=== PATIENT | female | born 1955 | race Caucasian/White ===

== ENCOUNTER 2017-07-26 10:17 | Inpatient (IN) ==
[2017-07-26] MEDS ORDERED: LOPERAMIDE 2 MG CAPSULE PO STA (11:03)
[2017-07-26] MEDS ORDERED: ONDANSETRON 4 MG/2 ML VIAL IV STA (11:03)
[2017-07-26] MEDS ORDERED: SODIUM CHLORIDE 0.9% 2,000 ML IV STA (11:03)
[2017-07-26 12:04] LABS: Basophils # 0.1 10*3/uL (0.0-0.2); Basophils % 0.3 % (0.0-0.8); Hematocrit 37.4 VOL% (35.7-47.0); Hemoglobin 12.5 GM/DL (12.0-16.0); Immature Granulocytes % 0.7 %; Immature Granulocytes Absolute 0.11 #; Lymphocytes # 0.7 10*3/uL (1.4-4.0); Lymphocytes % 4.5 % (21.3-54.2); Mean Corpuscular HGB Conc 33.4 GM/DL (32-36); Mean Corpuscular Hemoglobin 29 PG (27-34); Monocytes # 1.3 10*3/uL (0.11-0.8); Monocytes % 8.6 % (1.7-12.7); Neutrophils # 13.1 10*3/uL (1.4-7.4); Neutrophils % 85.9 % (38.7-73.9); Platelet Count 249 T/CUMM (130-400); Red Cell Distribution Width 14.1 % (9.3-17.3); White Blood Count 15.3 T/CUMM (4-12)
[2017-07-26] MEDS ORDERED: ACETAMINOPHEN 500 MG TABLET ONE (12:14)
[2017-07-26] MEDS ORDERED: ACETAMINOPHEN 500 MG TABLET PO STA (12:15)
[2017-07-26 12:36] LABS: Albumin 3.2 G/DL (3.4-5.0); Bilirubin,Total 0.9 MG/DL (0.2-1.0); Calcium 7.7 MG/DL (8.5-10.1); Osmolality,Calculated 271.5 MOS/KG (273-304); Potassium 3.7 MMOL/L (3.5-5.1)
[2017-07-26 12:38] LABS: Hypochromasia Slight; Lymphocytes 3 % (20-55); Platelet Estimate Adequate; Segmented Neutrophils 92 % (50-85); Total Cells Counted 100
[2017-07-26] MEDS ORDERED: cefTRIAXone 1,000 MG in SODIUM CHLORIDE 0.9% 100 ML IV STA (13:02)
[2017-07-26] MEDS ORDERED: ACETAMINOPHEN 325 MG TABLET PO PRN (13:10)
[2017-07-26] MEDS ORDERED: ONDANSETRON 4 MG/2 ML VIAL IV PRN (13:10)
[2017-07-26] MEDS ORDERED: cefTRIAXone 1,000 MG in SYRINGE 1 EACH IV STA (13:11)
[2017-07-26] MEDS: SODIUM CHLORIDE 0.9% 1,000 ML IV SCH ×2 (14:20→20:55)
[2017-07-26 16:37] LABS: Apearance,Urine CLEAR (Clear); Bilirubin,Urine Negative (Negative); Blood, Urine Large mg/dL (Negative); Glucose,Urine (UA) >=500 mg/dL (Negative); Ketones,Urine 20 mg/dL (Negative); Mucus,Urine Occasional /LPF (Occasional); Nitrite,Urine Negative (Negative); Protein,Urine 30 MG/DL; RBC,Urine 6 /HPF (0-4); Squamous Epithelial Cell,Urine Occasional /HPF (0-10); Urine Color Yellow (Yellow); Urine Specific Gravity 1.032 (1.001-1.035); Urine Urobilinogen < 2.0 EU/DL (0.2-1.0); WBC,Urine 1 /HPF (0-6)
[2017-07-26] MEDS ORDERED: ERGOCALCIFEROL 50,000 UNIT CAPSULE PO SCH (18:00)
[2017-07-26] MEDS ORDERED: SKIN HEALING OINT (AQUAPHOR) 50 GM TUBE TOP PRN (19:30)
[2017-07-26] MEDS ORDERED: MAGNESIUM HYDROXIDE SUSP 30 ML UDCUP PO PRN (19:34)
[2017-07-26] MEDS ORDERED: PROMETHAZINE 25 MG/1 ML VIAL IM PRN (19:35)
[2017-07-26] MEDS ORDERED: GLUCAGON 1 MG VIAL IM PRN (19:37)
[2017-07-26] MEDS ORDERED: DEXTROSE 50% 25 GM/50 ML VIAL IV PRN (19:37)
[2017-07-26] MEDS ORDERED: FUROSEMIDE 40 MG/4 ML VIAL IV ONE (20:00)
[2017-07-26] MEDS ORDERED: POTASSIUM CHLORIDE 20 MEQ TABLET PO ONE (20:00)
[2017-07-26] MEDS: MYCOPHENOLATE MOFETIL 250 MG CAPSULE PO SCH (20:47)
[2017-07-26] MEDS: CALCIUM (CARBONATE) 500 MG TABLET PO SCH (20:48)
[2017-07-26] MEDS: DOCUSATE SODIUM 100 MG CAPSULE PO SCH (20:48)
[2017-07-26] MEDS: MULTIVITAMIN (CENTRUM) TABLET PO SCH (20:48)
[2017-07-26] MEDS: methylPREDNISolone SOD SUC 40 MG/1 ML VIAL IV SCH (20:52)
[2017-07-26] MEDS: AZITHROMYCIN INJ 250 MG in SODIUM CHLORIDE 0.9% 250 ML IV SCH (20:56)
[2017-07-26] MEDS: KETOROLAC 15 MG/1 ML VIAL IV SCH (21:02)
[2017-07-26] MEDS: ALBUTEROL/IPRATROPIUM 3 ML NEB RESP TX SCH (23:57)
[2017-07-27] MEDS: cefTRIAXone 1,000 MG in SYRINGE 1 EACH IV SCH ×2 (00:50→13:38)
[2017-07-27] MEDS: methylPREDNISolone SOD SUC 40 MG/1 ML VIAL IV SCH ×3 (05:14→20:25)
[2017-07-27] MEDS: KETOROLAC 15 MG/1 ML VIAL IV SCH ×3 (05:16→22:16)
[2017-07-27 05:27] LABS: Basophils % 0.2 % (0.0-0.8); Hematocrit 35.4 VOL% (35.7-47.0); Hemoglobin 11.3 GM/DL (12.0-16.0); Immature Granulocytes % 0.6 %; Immature Granulocytes Absolute 0.07 #; Lymphocytes # 0.8 10*3/uL (1.4-4.0); Lymphocytes % 6.5 % (21.3-54.2); Mean Corpuscular HGB Conc 31.9 GM/DL (32-36); Mean Corpuscular Hemoglobin 29 PG (27-34); Mean Corpuscular Volume 89.8 FL (87-102); Mean Platelet Volume 10.2 FL (9.6-12.0); Monocytes # 0.4 10*3/uL (0.11-0.8); Monocytes % 3.2 % (1.7-12.7); Neutrophils % 89.5 % (38.7-73.9); Platelet Count 226 T/CUMM (130-400); Red Blood Count 3.94 MC/CUMM (3.8-5.5); Red Cell Distribution Width 14.2 % (9.3-17.3); White Blood Count 12.3 T/CUMM (4-12)
[2017-07-27 06:01] LABS: Albumin 3.1 G/DL (3.4-5.0); Bilirubin,Total 0.6 MG/DL (0.2-1.0); Calcium 7.1 MG/DL (8.5-10.1); Osmolality,Calculated 285.5 MOS/KG (273-304); Potassium 4.2 MMOL/L (3.5-5.1); Total Protein 7.9 G/DL (6.4-8.3)
[2017-07-27 06:06] LABS: Folate 21.4 NG/ML (5.4-24.0)
[2017-07-27 06:06] LABS: Calcium 7.2 MG/DL (8.5-10.1); Osmolality,Calculated 285.5 MOS/KG (273-304); Potassium 4.4 MMOL/L (3.5-5.1)
[2017-07-27] MEDS: ALBUTEROL/IPRATROPIUM 3 ML NEB RESP TX SCH ×3 (08:11→23:55)
[2017-07-27] MEDS ORDERED: LYSINE 1000 MG PO SCH (09:00)
[2017-07-27] MEDS ORDERED: predniSONE 5 MG TABLET PO SCH (09:00)
[2017-07-27] MEDS ORDERED: CANAGLIFLOZIN 300 MG PO SCH (09:00)
[2017-07-27] MEDS ORDERED: [Biotin] 10,000 MCG PO SCH (09:00)
[2017-07-27] MEDS ORDERED: TURMERIC PO SCH (09:00)
[2017-07-27] MEDS ORDERED: CHLORPHENIRAMINE MALEATE 4 MG PO SCH (09:00)
[2017-07-27] MEDS ORDERED: FUROSEMIDE 20 MG/2 ML VIAL IV SCH (09:00)
[2017-07-27] MEDS ORDERED: POTASSIUM CHLORIDE 20 MEQ TABLET PO SCH (09:00)
[2017-07-27] MEDS: CALCIUM (CARBONATE) 500 MG TABLET PO SCH ×2 (09:08→20:30)
[2017-07-27] MEDS: INSULIN REGULAR 100 UNIT/ML SUBCUT SCH ×2 (09:08→17:25)
[2017-07-27] MEDS: DOCUSATE SODIUM 100 MG CAPSULE PO SCH ×2 (09:08→20:25)
[2017-07-27] MEDS: SERTRALINE 50 MG TABLET PO SCH (09:08)
[2017-07-27] MEDS: CALCITRIOL 0.25 MCG CAPSULE PO SCH (09:08)
[2017-07-27] MEDS: PANTOPRAZOLE 40 MG TABLET PO SCH (09:08)
[2017-07-27] MEDS: MULTIVITAMIN (CENTRUM) TABLET PO SCH ×2 (09:08→20:25)
[2017-07-27] MEDS: MYCOPHENOLATE MOFETIL 250 MG CAPSULE PO SCH ×2 (09:08→20:24)
[2017-07-27] MEDS: SODIUM CHLORIDE 0.9% 1,000 ML IV SCH (13:40)
[2017-07-27] MEDS: AZITHROMYCIN INJ 250 MG in SODIUM CHLORIDE 0.9% 250 ML IV SCH (20:21)
[2017-07-27] MEDS ORDERED: CYANOCOBALAMIN 1000 MCG/1 ML VIAL IM ONE (21:30)
[2017-07-28] MEDS: SODIUM CHLORIDE 0.9% 1,000 ML IV SCH ×3 (00:25→20:51)
[2017-07-28] MEDS: cefTRIAXone 1,000 MG in SYRINGE 1 EACH IV SCH ×2 (00:30→12:47)
[2017-07-28] MEDS: methylPREDNISolone SOD SUC 40 MG/1 ML VIAL IV SCH ×3 (05:23→14:13)
[2017-07-28] MEDS: KETOROLAC 15 MG/1 ML VIAL IV SCH ×3 (05:26→23:09)
[2017-07-28 05:30] LABS: Basophils % 0.1 % (0.0-0.8); Hematocrit 30.9 VOL% (35.7-47.0); Hemoglobin 10.3 GM/DL (12.0-16.0); Immature Granulocytes % 0.8 %; Lymphocytes # 1.1 10*3/uL (1.4-4.0); Lymphocytes % 8.4 % (21.3-54.2); Mean Corpuscular HGB Conc 33.3 GM/DL (32-36); Mean Corpuscular Hemoglobin 29 PG (27-34); Mean Corpuscular Volume 88.3 FL (87-102); Mean Platelet Volume 10.4 FL (9.6-12.0); Monocytes # 0.6 10*3/uL (0.11-0.8); Monocytes % 4.3 % (1.7-12.7); Neutrophils # 11.3 10*3/uL (1.4-7.4); Neutrophils % 86.4 % (38.7-73.9); Platelet Count 247 T/CUMM (130-400); Red Cell Distribution Width 14.6 % (9.3-17.3); White Blood Count 13.1 T/CUMM (4-12)
[2017-07-28 05:57] LABS: Calcium 6.9 MG/DL (8.5-10.1); Osmolality,Calculated 280.8 MOS/KG (273-304)
[2017-07-28] MEDS: ALBUTEROL/IPRATROPIUM 3 ML NEB RESP TX SCH ×2 (07:06→14:00)
[2017-07-28] MEDS: PANTOPRAZOLE 40 MG TABLET PO SCH (10:04)
[2017-07-28] MEDS: SERTRALINE 50 MG TABLET PO SCH (10:04)
[2017-07-28] MEDS: DOCUSATE SODIUM 100 MG CAPSULE PO SCH ×2 (10:05→20:54)
[2017-07-28] MEDS: MYCOPHENOLATE MOFETIL 250 MG CAPSULE PO SCH ×2 (10:05→20:50)
[2017-07-28] MEDS: CALCIUM (CARBONATE) 500 MG TABLET PO SCH ×2 (10:06→20:51)
[2017-07-28] MEDS: CALCITRIOL 0.25 MCG CAPSULE PO SCH (10:06)
[2017-07-28] MEDS: MULTIVITAMIN (CENTRUM) TABLET PO SCH ×2 (10:06→20:50)
[2017-07-28] MEDS: INSULIN REGULAR 100 UNIT/ML SUBCUT SCH ×2 (10:06→16:55)
[2017-07-28] MEDS: AZITHROMYCIN INJ 250 MG in SODIUM CHLORIDE 0.9% 250 ML IV SCH (20:51)
[2017-07-29] MEDS: ALBUTEROL/IPRATROPIUM 3 ML NEB RESP TX SCH ×2 (00:40→07:29)
[2017-07-29] MEDS: cefTRIAXone 1,000 MG in SYRINGE 1 EACH IV SCH (02:41)
[2017-07-29] MEDS: methylPREDNISolone SOD SUC 40 MG/1 ML VIAL IV SCH (02:42)
[2017-07-29 06:33] LABS: Basophils % 0.1 % (0.0-0.8); Eosinophils % 0.1 % (0.00-10.9); Hematocrit 30.3 VOL% (35.7-47.0); Hemoglobin 10.3 GM/DL (12.0-16.0); Immature Granulocytes % 0.8 %; Lymphocytes # 1.2 10*3/uL (1.4-4.0); Mean Corpuscular Hemoglobin 29 PG (27-34); Mean Corpuscular Volume 86.3 FL (87-102); Mean Platelet Volume 10.3 FL (9.6-12.0); Monocytes # 0.8 10*3/uL (0.11-0.8); Monocytes % 6.7 % (1.7-12.7); Neutrophils # 9.8 10*3/uL (1.4-7.4); Neutrophils % 82.3 % (38.7-73.9); Platelet Count 259 T/CUMM (130-400); Red Blood Count 3.51 MC/CUMM (3.8-5.5)
[2017-07-29 06:52] LABS: Calcium 6.9 MG/DL (8.5-10.1); Osmolality,Calculated 286.3 MOS/KG (273-304); Potassium 3.8 MMOL/L (3.5-5.1)
[2017-07-29] MEDS: KETOROLAC 15 MG/1 ML VIAL IV SCH (07:01)
[2017-07-29 07:41] VITALS: BP 104/58
[2017-07-29] MEDS: INSULIN REGULAR 100 UNIT/ML SUBCUT SCH (09:36)
[2017-07-29] MEDS: SODIUM CHLORIDE 0.9% 1,000 ML IV SCH (09:37)
[2017-07-29] MEDS: MYCOPHENOLATE MOFETIL 250 MG CAPSULE PO SCH (09:38)
[2017-07-29] MEDS: MULTIVITAMIN (CENTRUM) TABLET PO SCH (09:39)
[2017-07-29] MEDS: CALCIUM (CARBONATE) 500 MG TABLET PO SCH (09:39)
[2017-07-29] MEDS: DOCUSATE SODIUM 100 MG CAPSULE PO SCH (09:39)
[2017-07-29] MEDS: SERTRALINE 50 MG TABLET PO SCH (09:40)
[2017-07-29] MEDS: PANTOPRAZOLE 40 MG TABLET PO SCH (09:40)
[2017-07-29] MEDS: CALCITRIOL 0.25 MCG CAPSULE PO SCH (09:40)
== END 2017-07-29 15:15 | disposition home or self-care (01) | DRG 545 ==
LOC: N.ED 10:17 → N.EDINP 13:10 → N.5E 14:08
PROVIDERS: ADMIT Family Medicine; ATTEND Family Medicine